=== PATIENT | male | born 1995 | race Caucasian/White ===

== ENCOUNTER 2016-11-02 07:35 | Emergency (ER) | payer BC, MEDICAID ==
[~2016-11-02] VITALS: Ht 170.2 cm; Wt 72.0 kg
[2016-11-02 07:36] VITALS: Ht 170.2 cm; Wt 72.0 kg
[2016-11-02] MEDS ORDERED: FAMOTIDINE 20 MG INJ IV STA (07:56)
[2016-11-02] MEDS ORDERED: morphine 4 MG/ML VIAL IV STA (07:56)
[2016-11-02] MEDS ORDERED: SOD CHLORIDE 0.9% 1,000 ML IV STA ×2 (07:56→08:44)
[2016-11-02] MEDS ORDERED: ONDANSETRON 4 MG INJ IV STA ×2 (07:56→08:44)
--- NOTE | 2016-11-02 08:01 | ERA ---
ER Documentation Chief Complaint Date/Time DATE: 11/02/16 TIME: 07:57 Chief Complaint ABD PAIN , FEELING ANXIUOS HPI This is a 21-year-old male that presents to the emergency department complaining of severe abdominal pain has been present for the past 13 hours. The patient indicates that at 7 PM yesterday evening he developed periumbilical abdominal cramping. He had eaten dinner just prior to the onset of his symptoms. He started to notice abdominal distention throughout the night and the pain continued to worsen. He has had multiple episodes of nonbloody nonbilious emesis. Indicates that the pain is now in the bilateral lower quadrants it is 10 out of 10 in intensity. He states he has never had any similar symptoms in the past. He states the pain is so intense that he felt very anxious and therefore came to the emergency department to be further evaluated. He denies any diarrhea or constipation. He denies any illicit drug use or alcohol use. He has had no recent travel. He denies any fever shaking or chills. He has had no past surgical history. Take any analgesic medication prior to arrival. No alleviating or exacerbating factors to the pain. He denies any testicular pain or swelling. He has no frequency urgency or dysuria no gross hematuria ROS All systems reviewed and are negative except as per history of present illness. Medications Home Meds Active Scripts Ibuprofen* (Motrin*) 800 Mg Tab, 800 MG PO Q6H Y for PAIN AND OR ELEVATED TEMP, #20 TAB Prov:JASWINDER HERRERA 11/02/16 Ondansetron (Ondansetron Odt) 4 Mg Tab.rapdis, 4 MG PO Q6H Y for NAUSEA AND/OR VOMITING, #10 TAB Prov:JASWINDER HERRERA 11/02/16 Reported Medications [None] No Conflict Check 07/05/11 Allergies Allergies: Uncoded Allergies: NONE (Allergy, Unknown, 11/02/16) PMhx/Soc History of Surgery: No Anesthesia Reaction: No Hx Neurological Disorder: No Hx Respiratory Disorders: No Hx Cardiac Disorders: No Hx Psychiatric Problems: No Hx Miscellaneous Medical Probl: No Hx Alcohol Use: No Hx Substance Use: No Hx Tobacco Use: No Physical Exam Vitals Vital Signs Date Time Temp Pulse Resp B/P Pulse Ox O2 Delivery O2 Flow Rate FiO2 11/02/16 07:36 98.1 112 18 145/69 100 Physical Exam Constitutional:Well-developed. Well-nourished. Patient appeared to be in a significant amount of discomfort with active nonbloody nonbilious emesis that occurred during physical exam HEENT:Normocephalic. Atraumatic.Pupils were equal round reactive to light. Dry mucous membranes.No tonsillar exudates. Neck: No nuchal rigidity. No lymphadenopathy. No posterior cervical spine tenderness or step-offs. Respiratory: Not using accessory muscles of respiration.Lungs were clear to auscultation bilaterally. No rhonchi. No rales. No wheezing. Cardiovascular: Regular rate regular rhythm.No murmurs. No rubs were appreciated.S1, S2 normal. Distal pulses are palpable 2+ bilaterally. GI: Abdomen was distended with a bilateral tenderness in the left and the right lower quadrant involuntary guarding. No pulsatile abdominal masses or bruits. No rebound. No guarding. Bowel sounds were present and normal. Psoas sign negative. Obturator sign negative. Tenderness over McBurney's point. Muscle skeletal: Full range of motion of both the upper and lower extremities bilaterally.Normal muscle tone.No assymetrical calf tenderness or swelling. Skin: No petechia, no purpura. No lesions on the palms or the soles of the feet. No maculopapular rash. NEURO: Patient was alert, awake, orientated x3.No facial droop. Gait observed and normal with no ataxia.Speech had regular rate and rhythm. No focal neurological deficits. Result Diagram: 11/02/16 0800 11/02/16 0800 Results 24 hrs Laboratory Tests Test 11/02/16 08:00 White Blood Count 7.110^3/ul Red Blood Count 5.1710^6/ul Hemoglobin 15.1g/dl Hematocrit 43.9% Mean Corpuscular Volume 84.9fl Mean Corpuscular Hemoglobin 29.2pg Mean Corpuscular Hemoglobin Concent 34.4g/dl Red Cell Distribution Width 12.7% Platelet Count 13955^3/UL Mean Platelet Volume 9.9fl Neutrophils % 43.1% Lymphocytes % 43.8% Monocytes % 6.1% Eosinophils % 5.8% Basophils % 0.6% Nucleated Red Blood Cells % 0.0/100WBC Neutrophils # 3.110^3/ul Lymphocytes # 3.110^3/ul Monocytes # 0.410^3/ul Eosinophils # 0.410^3/ul Basophils # 0.010^3/ul Nucleated Red Blood Cells # 0.010^3/ul Prothrombin Time 12.3Sec Prothrombin Time Ratio 1.0 INR International Normalized Ratio 0.91 Activated Partial Thromboplast Time 26.7Sec Sodium Level 142mmol/L Potassium Level 3.3mmol/L Chloride Level 103mmol/L Carbon Dioxide Level 30mmol/L Anion Gap 12 Blood Urea Nitrogen 10mg/dl Creatinine 0.96mg/dl Glucose Level 99mg/dl Calcium Level 9.4mg/dl Total Bilirubin 0.4mg/dl Direct Bilirubin 0.00mg/dl Indirect Bilirubin 0.4mg/dl Aspartate Amino Transf (AST/SGOT) 27IU/L Alanine Aminotransferase (ALT/SGPT) 37IU/L Alkaline Phosphatase 109IU/L Total Protein 8.0g/dl Albumin 4.5g/dl Globulin 3.50g/dl Albumin/Globulin Ratio 1.28 Amylase Level 105U/L Lipase 55U/L Current Medications Medications (Trade) Dose Ordered Sig/Adri Route PRN Reason Start Time Stop Time Status Last Admin Dose Admin Sodium Chloride (NS) 1,000 ml @ 1,000 mls/hr Q1H STAT IV 11/02/16 07:56 11/02/16 08:55 DC 11/02/16 08:09 Morphine Sulfate (morphine) 4 mg ONCE STAT IV 11/02/16 07:56 11/02/16 07:58 DC 11/02/16 08:08 Ondansetron HCl (Zofran Inj) 4 mg ONCE STAT IV 11/02/16 07:56 11/02/16 07:58 DC 11/02/16 08:08 Famotidine 20 mg 20 mg ONCE STAT IV 11/02/16 07:56 11/02/16 07:58 DC 11/02/16 08:08 Sodium Chloride (NS) 1,000 ml @ 1,000 mls/hr Q1H STAT IV 11/02/16 08:44 11/02/16 09:43 DC 11/02/16 09:01 Hydromorphone HCl (Dilaudid) 1 mg ONCE STAT IV 11/02/16 08:44 11/02/16 08:50 DC 11/02/16 09:00 Ondansetron HCl (Zofran Inj) 4 mg ONCE STAT IV 11/02/16 08:44 11/02/16 08:50 DC 11/02/16 09:00 IV Flush 10 ml 10 ml STK-MED ONCE .ROUTE 11/02/16 09:30 11/02/16 09:31 DC Sodium Chloride (NS) 100 ml @ ud STK-MED ONCE .ROUTE 11/02/16 09:30 11/02/16 09:31 DC Iohexol (Omnipaque 300mg/ ml) 150 ml STK-MED ONCE .ROUTE 11/02/16 09:30 11/02/16 09:31 DC Ketorolac Tromethamine (Toradol) 30 mg ONCE STAT IV 11/02/16 10:17 11/02/16 10:19 DC Procedures/MDM This patient presented to the emergency department with abdominal pain and was seen and evaluated by myself. My differential diagnosis included but was not limited to abdominal aortic aneurysm, appendicitis, pancreatitis, perforated peptic ulcer, perforated viscus, Boerhaaves syndrome or visceral pain such as diverticulitis, DKA, esophagitis, hepatitis or bowel obstruction. The patient was placed on a cardiac rn, continuous pulse oximetry, and IV access was established by nursing staff. The patient received intravenous morphine and Zofran for analgesia control and was given a liter bolus of 0.9 normal saline and IV pepcid. Given the severity of the patient's symptoms I did feel was necessary for the patient to receive a CT scan of his abdomen to rule out acute appendicitis or perforation. CT scan reviewed with radiologist and myself indicated there was no acute surgical abdomen or appendicitis. The patient had no leukocytosis or electrolyte abnormalities. I did feel the patient's symptoms likely at this time could be a result of a viral etiology and his pain is completely resolved after receiving IV fluids and antiemetics as well as Toradol. The patient was discharged home in fair condition. They were instructed to return to the emergency department at any time if there was any worsening of their condition. The patient stated they would follow up with their PCP in the next 24-48 hours to initiate a suitable medication regimen under the care of their PCP as well as to allow their PCP to monitor any drug reactions. The patient was discharged home with prescriptions after they gave informed consent to the new medication. They were also fully informed by myself on the adverse effects and adverse drug interactions in order to provide adequate safeguards to prevent possible adverse reactions to medications. Departure Diagnosis: Primary Impression: Abdominal pain Qualified Code: R10.31 - Right lower quadrant abdominal pain Additional Impression: Vomiting Qualified Code: R11.2 - Non-intractable vomiting with nausea, unspecified vomiting type Condition: Serious JASWINDER HERRERA Nov 02, 2016 08:01
[2016-11-02 08:39] LABS: BASOPHILS % 0.6 % (0.0-2.0); EOSINOPHILS # 0.4 10^3/ul (0.0-0.5); EOSINOPHILS % 5.8 % (0.0-7.0); HEMATOCRIT 43.9 % (42.0-52.0); HEMOGLOBIN 15.1 g/dl (14.0-18.0); LYMPHOCYTES # 3.1 10^3/ul (0.8-2.9); LYMPHOCYTES % 43.8 % (15.0-51.0); MEAN CORPUSCULAR HEMOGLOBIN 29.2 pg (29.0-33.0); MEAN CORPUSCULAR HGB CONC 34.4 g/dl (32.0-37.0); MEAN CORPUSCULAR VOLUME 84.9 fl (82.0-101.0); MEAN PLATELET VOLUME 9.9 fl (7.4-10.4); MONOCYTE # 0.4 10^3/ul (0.3-0.9); MONOCYTES % 6.1 % (0.0-11.0); NEUTROPHIL # 3.1 10^3/ul (1.6-7.5); NEUTROPHILS % 43.1 % (39.0-77.0); PLATELET COUNT 186 10^3/UL (140-415); RED BLOOD COUNT 5.17 10^6/ul (4.70-6.10); RED CELL DISTRIBUTION WIDTH 12.7 % (11.5-14.5); WHITE BLOOD COUNT 7.1 10^3/ul (4.8-10.8)
[2016-11-02] MEDS ORDERED: HYDROmorphONE 1 MG/ML SYG IV STA (08:44)
[2016-11-02 08:55] LABS: INR 0.91; PROTIME 12.3 Sec (12.2-14.2)
[2016-11-02 08:56] LABS: PARTIAL THROMBOPLASTIN TIME 26.7 Sec (25.0-35.0)
[2016-11-02 09:00] LABS: ALBUMIN 4.5 g/dl (3.3-4.9); ALBUMIN/GLOBULIN RATIO 1.28; BILIRUBIN,INDIRECT 0.4 mg/dl (0-1.1); BILIRUBIN,TOTAL 0.4 mg/dl (0.2-1.3); CALCIUM 9.4 mg/dl (8.4-10.2); CREATININE 0.96 mg/dl (0.61-1.24); POTASSIUM 3.3 mmol/L (3.5-5.1)
[2016-11-02] MEDS ORDERED: IOHEXOL 300MG/ML 150 ML BTL ONE (09:30)
[2016-11-02] MEDS ORDERED: SOD CHLORIDE 0.9% 100 ML ONE (09:30)
--- NOTE | 2016-11-02 10:05 | RADRPT ---
PROCEDURE: CT Abdomen and Pelvis with intravenous contrast. CLINICAL INDICATION: Diffuse abdominal pain. TECHNIQUE: CT scan of the abdomen and pelvis with intravenous contrast was performed on the multi- slice CT scanner. The patient was scanned following the uncomplicated intravenous administration of 100 cc of Omnipaque-300 contrast. Coronal and sagittal reformatted images were obtained from the a xial source images. Images were reviewed on a high-resolution PACS workstation. Total DLP = 415.7 mGy-cm. CTDIvol = 6.9 mGy. One or more of the following dose reduction techniques were used: Automated exposure control. Adjustment of the mA and/or kV according to patient size. Use of iterative reconstruction technique. COMPARISON: None. FINDINGS: CT abdomen and pelvis: The lung bases are clear. The heart size is normal in size. The liver is normal in size and densit y without focal mass or intrahepatic biliary dilatation. The spleen is normal in size and homogeneo us in density. The pancreas as visualized is normal. The gallbladder shows no evidence of stones or distension . The adrenal glands are normal. The kidneys are symmetrically unremarkable. No ur olithiasis, obstructive uropathy, or solid mass lesion is seen. The stomach is partially collapsed, but is grossly unremarkable. The small bowels are unremarkable. The colon and rectum are normal. There is mild retained feces throughout the colon. The appendix is normal.. No evidence of acute appendicitis or diverticulitis. The pelvic organs are normal. The tristan dder is normal. There is no abdominal or pelvic adenopathy, free fluid, free air, mass or mesenteric inflammation. The aorta is normal in caliber and course. The osseous structures are intact. No osteolytic or osteo blastic lesions are identified. The soft tissues are within normal limits. IMPRESSION: 1. Unremarkable CT scan of the abdomen and pelvis. RPTAT: GG .Alexis Vasques MD, Date Time Electronically viewed and signed by .Alexis Vasques MD, on 11/02/2016 10:05 .L/
[2016-11-02] MEDS ORDERED: KETOROLAC 30 MG INJ IV STA (10:17)
[2016-11-02] MEDS ORDERED: IBUP800T25 PO (10:19)
[2016-11-02] MEDS ORDERED: ONDA4TAB14 PO (10:19)
[2016-11-02] MEDS ORDERED: DOCU-144 PO (10:37)
[2016-11-02 11:07] VITALS: PULSE 77; RESP 16
== END 2016-11-02 11:08 | disposition home or self-care (01) ==
LOC: FTE 07:35
DX: R10.31 Right lower quadrant pain (principal); R11.2 Nausea with vomiting, unspecified
CPT/HCPCS: 74177; 80053; 82150; 83690; 85025; 85610; 85730; 96360; J1170; J1885; J2270; J2405; J7030; Q9967; Z7502; Z7610

== ENCOUNTER 2017-02-28 16:53 | Emergency (ER) | END 2017-02-28 23:04 | disposition home or self-care (01) ==

== ENCOUNTER 2017-07-09 18:47 | Emergency (ER) | END 2017-07-09 20:35 | disposition home or self-care (01) ==